=== PATIENT | female | born 1975 | race Caucasian/White ===

== ENCOUNTER 2017-01-25 00:40 | Emergency (ER) | payer SELFPAY ==
[~2017-01-25] VITALS: Ht 167.6 cm; Wt 110.0 kg
[2017-01-25 00:42] VITALS: BP 188/100; PULSE 126; RESP 18; TEMP 98.5; O2SAT 100
--- NOTE | 2017-01-25 00:56 | PD ---
HPI Chief Complaint: Psychiatric Symptoms Time Seen by Provider: 00:50 Travel History International Travel<30 days: No Contact w/Intl Traveler<30days: No Traveled to known affect area: No History of Present Illness HPI 41 year white female presents emergency Department under [place] act by PD. Patient had made suicidal statements that she was going to commit suicide by shooting herself in head with a gun. The patient was placed in the custody at her home. During her intake she allegedly had been bitten on her lower extremity is by ants. The patient then claimed that she would have a reaction to and bites. EMS was summoned and the patient was brought to the ER. The patient here smells of alcohol. She is uncooperative resisting evaluation today. The patient here denies making any suicidal statements. She denies any homicidal ideation. She denies toxic ingestions. She does admit to alcohol but denies any other drugs. She does not smoke. PFSH Past Medical History Narrative Medical Sees on allergies, arthritis Tetanus Vaccination: < 5 Years ?: Not Past Surgical History Narrative Surgical Carpal tunnel release, tonsillectomy, , tubal ligation, bilateral salpingo-oophorectomy, Social History Alcohol Use: Yes Tobacco Use: No Substance Use: No Allergies-Medications (Allergen,Severity, Reaction): Coded Allergies: Benadryl (Verified Allergy, Severe, 01/25/17) Penicillin (Verified Allergy, Severe, 01/25/17) Reported Meds & Prescriptions Reported Meds & Active Scripts Active No Active Prescriptions or Reported Medications Review of Systems ROS Limitations: Intoxication, Unresponsive Psychiatric: Positive: Depression (a lot of the above the), Mood Disorder, No : Anxiety, Suicidal Ideations, Disorder of Thought, Substance Abuse, Homicidal Ideation Physical Exam Narrative GENERAL: Well-nourished, well-developed patient. Patient is uncooperative. She is intoxicated and smells of EtOH. SKIN: Warm and dry. HEAD: Normocephalic and atraumatic. EYES: No scleral icterus. No injection or drainage. ENT: No nasal drainage noted. Mucous membranes pink. Airway patent. NECK: Supple, trachea midline. Moves head freely without obvious discomfort. CARDIOVASCULAR: Regular rate and rhythm without murmurs, gallops, or rubs. RESPIRATORY: Breath sounds equal bilaterally. No accessory muscle use. GASTROINTESTINAL: Abdomen soft, non-tender, nondistended. EXTREMITIES: No cyanosis or edema. BACK: Nontender without obvious deformity. No CVA tenderness. NEURO: Patient is alert and oriented. no sensorimotor deficits. Nonfocal. Normal speech. PSYCH: No delusions. No auditory or visual hallucinations. Data Data Last Documented VS Vital Signs Date Time Temp Pulse Resp B/P Pulse Ox O2 Delivery O2 Flow Rate FiO2 01/25/17 02:56 90 18 152/85 99 Room Air 01/25/17 00:42 98.5 Orders Complete Blood Count With Diff (01/25/17 00:45) Comprehensive Metabolic Panel (01/25/17 00:45) Psych Screen (01/25/17 00:45) Drug Screen, Random Urine (01/25/17 00:45) Alcohol (Ethanol) (01/25/17 00:45) Salicylates (Aspirin) (01/25/17 00:45) Tylenol (Acetaminophen) (01/25/17 00:45) Labs Laboratory Tests Test 01/25/17 01/25/17 00:45 01:20 White Blood Count 10.8 TH/MM3 Red Blood Count 5.27 MIL/MM3 Hemoglobin 15.5 GM/DL Hematocrit 46.8 % Mean Corpuscular Volume 88.9 FL Mean Corpuscular Hemoglobin 29.4 PG Mean Corpuscular Hemoglobin 33.1 % Concent Red Cell Distribution Width 14.4 % Platelet Count 271 TH/MM3 Mean Platelet Volume 10.3 FL Neutrophils (%) (Auto) 60.1 % Lymphocytes (%) (Auto) 33.0 % Monocytes (%) (Auto) 5.5 % Eosinophils (%) (Auto) 0.2 % Basophils (%) (Auto) 1.2 % Neutrophils # (Auto) 6.5 TH/MM3 Lymphocytes # (Auto) 3.6 TH/MM3 Monocytes # (Auto) 0.6 TH/MM3 Eosinophils # (Auto) 0.0 TH/MM3 Basophils # (Auto) 0.1 TH/MM3 CBC Comment DIFF FINAL Differential Comment Sodium Level 141 MEQ/L Potassium Level 4.0 MEQ/L Chloride Level 102 MEQ/L Carbon Dioxide Level 21.2 MEQ/L Anion Gap 18 MEQ/L Blood Urea Nitrogen 11 MG/DL Creatinine 0.82 MG/DL Estimat Glomerular Filtration 76 ML/MIN Rate Random Glucose 114 MG/DL Calcium Level 9.0 MG/DL Total Bilirubin 0.4 MG/DL Aspartate Amino Transf 25 U/L (AST/SGOT) Alanine Aminotransferase 25 U/L (ALT/SGPT) Alkaline Phosphatase 75 U/L Total Protein 7.8 GM/DL Albumin 3.9 GM/DL Salicylates Level LESS THAN 1.7 MG/DL Acetaminophen Level LESS THAN 2.0 MCG/ML Ethyl Alcohol Level 289 MG/DL Urine Opiates Screen NEG Urine Barbiturates Screen NEG Urine Amphetamines Screen NEG Urine Benzodiazepines Screen NEG Urine Cocaine Screen NEG Urine Cannabinoids Screen NEG MDM Medical Decision Making Medical Screen Exam Complete: Yes Emergency Medical Condition: Yes Medical Record Reviewed: Yes Interpretation(s) Laboratory Tests Test 01/25/17 01/25/17 00:45 01:20 White Blood Count 10.8 TH/MM3 Red Blood Count 5.27 MIL/MM3 Hemoglobin 15.5 GM/DL Hematocrit 46.8 % Mean Corpuscular Volume 88.9 FL Mean Corpuscular Hemoglobin 29.4 PG Mean Corpuscular Hemoglobin 33.1 % Concent Red Cell Distribution Width 14.4 % Platelet Count 271 TH/MM3 Mean Platelet Volume 10.3 FL Neutrophils (%) (Auto) 60.1 % Lymphocytes (%) (Auto) 33.0 % Monocytes (%) (Auto) 5.5 % Eosinophils (%) (Auto) 0.2 % Basophils (%) (Auto) 1.2 % Neutrophils # (Auto) 6.5 TH/MM3 Lymphocytes # (Auto) 3.6 TH/MM3 Monocytes # (Auto) 0.6 TH/MM3 Eosinophils # (Auto) 0.0 TH/MM3 Basophils # (Auto) 0.1 TH/MM3 CBC Comment DIFF FINAL Differential Comment Sodium Level 141 MEQ/L Potassium Level 4.0 MEQ/L Chloride Level 102 MEQ/L Carbon Dioxide Level 21.2 MEQ/L Anion Gap 18 MEQ/L Blood Urea Nitrogen 11 MG/DL Creatinine 0.82 MG/DL Estimat Glomerular Filtration 76 ML/MIN Rate Random Glucose 114 MG/DL Calcium Level 9.0 MG/DL Total Bilirubin 0.4 MG/DL Aspartate Amino Transf 25 U/L (AST/SGOT) Alanine Aminotransferase 25 U/L (ALT/SGPT) Alkaline Phosphatase 75 U/L Total Protein 7.8 GM/DL Albumin 3.9 GM/DL Salicylates Level LESS THAN 1.7 MG/DL Acetaminophen Level LESS THAN 2.0 MCG/ML Ethyl Alcohol Level 289 MG/DL Urine Opiates Screen NEG Urine Barbiturates Screen NEG Urine Amphetamines Screen NEG Urine Benzodiazepines Screen NEG Urine Cocaine Screen NEG Urine Cannabinoids Screen NEG Differential Diagnosis MDM: High Differential diagnoses: Schizophrenia, schizoaffective disorder, bipolar, anxiety, depression, adjustment reaction, mood disorder NOS, ODD, depressive disorder NOS, dementia, dementia with agitation, psychosis NOS, substance induced mood disorder, intermittent explosive disorder, Asperger syndrome, infection,electrolyte abnormality, malingering. Narrative Course Mental health screening discussed with the patient. Psychiatric screen ordered. The patient's been medically cleared. This is medical clearance for psychological evaluation, alcohol intoxication Diagnosis Primary Impression: Medical clearance for psychiatric admission Additional Impression: Alcohol intoxication Qualified Code: F10.920 - Alcohol intoxication, uncomplicated Scripts No Active Prescriptions or Reported Meds Condition: Quirino Peng January 25, 2017 00:56
[2017-01-25 01:04] LABS: AUTOMATED NEUTROPHIL # 6.5 TH/MM3 (1.8-7.7); BASOPHIL # 0.1 TH/MM3 (0-0.2); BASOPHIL % 1.2 % (0.0-2.0); EOSINOPHIL % 0.2 % (0.0-4.0); HEMATOCRIT 46.8 % (35.0-46.0); HEMO FLAGS DIFF FINAL; LYMPHOCYTE # 3.6 TH/MM3 (1.0-4.8); MEAN CELL VOLUME 88.9 FL (80.0-100.0); MEAN CORPUSCULAR HEMOGLOBIN 29.4 PG (27.0-34.0); MEAN CORPUSCULAR HGB CONC 33.1 % (32.0-36.0); MONO % 5.5 % (0.0-8.0); NEUT % 60.1 % (16.0-70.0); PLATELET COUNT 271 TH/MM3 (150-450); RED BLOOD COUNT 5.27 MIL/MM3 (4.00-5.30); RED CELL DISTRIBUTION WIDTH 14.4 % (11.6-17.2); WHITE BLOOD COUNT 10.8 TH/MM3 (4.0-11.0)
[2017-01-25 01:16] LABS: ALT (GPT) 25 U/L (10-53); ANION GAP 18 MEQ/L (5-15); AST (GOT) 25 U/L (15-37); BICARBONATE 21.2 MEQ/L (21.0-32.0); BLOOD UREA NITROGEN 11 MG/DL (7-18); CHLORIDE 102 MEQ/L (98-107); GLOMERULAR FILTRATION RATE 76 ML/MIN (>89); SODIUM (NA) 141 MEQ/L (136-145)
[2017-01-25 01:18] LABS: ACETAMINOPHEN LESS THAN 2.0 MCG/ML (10.0-30.0); ALKALINE PHOSPHATASE 75 U/L (45-117); TOTAL BILIRUBIN ADULT 0.4 MG/DL (0.2-1.0)
[2017-01-25 01:36] LABS: AMPHETAMINE, URINE NEG (NEG); BARBITURATES, URINE NEG (NEG); COCAINE, URINE NEG (NEG)
[2017-01-25 02:56] VITALS: BP 152/85; PULSE 90; RESP 18; O2SAT 99
[2017-01-25 06:16] VITALS: BP 153/90; PULSE 108; RESP 18; O2SAT 99
[2017-01-25] MEDS ORDERED: ONDANSETRON HCL 4 MG/2 ML VIAL IV PUSH ONE (06:30)
[2017-01-25 07:25] VITALS: BP 167/84; PULSE 99; RESP 18; TEMP 99; O2SAT 98
[2017-01-25] MEDS ORDERED: PROCHLORPERAZINE INJ 10 MG/2 ML VIAL IV PUSH ONE (09:00)
--- NOTE | 2017-01-25 11:31 | PD ---
History of Present Illness Chief Complaint: Psychiatric Symptoms Time Seen by Provider: 11:20 Travel History International Travel<30 Days: No Contact w/Intl Traveler<30days: No Known affected area: No Legal Status Legal Status: [place] Act [place] Signed By: Farhat Martel [place] Act Comment: 2016 @ [id number] History of Present Illness: Traveled to known affect area: No History of Present Illness HPI 41 year white female presents emergency Department under [place] act by PD. Patient had made suicidal statements that she was going to commit suicide by shooting herself in head with a gun. The patient was placed in the custody at her home. During her intake she allegedly had been bitten on her lower extremity is by ants. The patient then claimed that she would have a reaction to and bites. EMS was summoned and the patient was brought to the ER. The patient here smells of alcohol. She is uncooperative resisting evaluation today. The patient here denies making any suicidal statements. She denies any homicidal ideation. She denies toxic ingestions. She does admit to alcohol but denies any other drugs. She does not smoke. PFSH Past Medical History Tetanus Vaccination: < 5 Years Influenza Vaccination: No ?: Not Tubal Ligation: Yes Past Surgical History Section: Yes Psychiatric History Psychiatric History Hx Psychiatric Treatment: DENIES History of Inpatient Treatment: No Social History Hx Alcohol Use: Yes Hx Tobacco Use: No Hx Substance Use: Yes (AT LEAST ONE BOTTLE WINE DAILY X 6 MO) Substance Use Type: Alcohol Hx of Substance Use Treatment: No Allergies-Medications (Allergen,Severity, Reaction): Coded Allergies: Benadryl (Verified Allergy, Severe, 01/25/17) Penicillin (Verified Allergy, Severe, 01/25/17) Reported Meds & Prescriptions Reported Meds & Active Scripts Active No Active Prescriptions or Reported Medications Exam Alert: Yes Delusions: No MDM Medical Decision Making Medical Record Reviewed: Yes Assessment/Plan Lift BA. Cleared from psychiatry for discharge Orders Complete Blood Count With Diff (01/25/17 00:45) Comprehensive Metabolic Panel (01/25/17 00:45) Psych Screen (01/25/17 00:45) Drug Screen, Random Urine (01/25/17 00:45) Alcohol (Ethanol) (01/25/17 00:45) Salicylates (Aspirin) (01/25/17 00:45) Tylenol (Acetaminophen) (01/25/17 00:45) Ondansetron Inj (Zofran Inj) (01/25/17 06:30) Diet Regular Basic (01/25/17 Breakfast) Prochlorperazine Inj (Compazine Inj) (01/25/17 09:00) Results Vital Signs Date Time Temp Pulse Resp B/P Pulse Ox O2 Delivery O2 Flow Rate FiO2 01/25/17 07:25 99.0 99 18 167/84 98 01/25/17 06:16 108 18 153/90 99 Room Air 01/25/17 02:56 90 18 152/85 99 Room Air 01/25/17 00:44 126 01/25/17 00:42 98.5 126 18 188/100 100 Laboratory Tests Test 01/25/17 01/25/17 00:45 01:20 White Blood Count 10.8 Red Blood Count 5.27 Hemoglobin 15.5 Hematocrit 46.8 Mean Corpuscular Volume 88.9 Mean Corpuscular Hemoglobin 29.4 Mean Corpuscular Hemoglobin 33.1 Concent Red Cell Distribution Width 14.4 Platelet Count 271 Mean Platelet Volume 10.3 Neutrophils (%) (Auto) 60.1 Lymphocytes (%) (Auto) 33.0 Monocytes (%) (Auto) 5.5 Eosinophils (%) (Auto) 0.2 Basophils (%) (Auto) 1.2 Neutrophils # (Auto) 6.5 Lymphocytes # (Auto) 3.6 Monocytes # (Auto) 0.6 Eosinophils # (Auto) 0.0 Basophils # (Auto) 0.1 CBC Comment DIFF FINAL Differential Comment Sodium Level 141 Potassium Level 4.0 Chloride Level 102 Carbon Dioxide Level 21.2 Anion Gap 18 Blood Urea Nitrogen 11 Creatinine 0.82 Estimat Glomerular Filtration 76 Rate Random Glucose 114 Calcium Level 9.0 Total Bilirubin 0.4 Aspartate Amino Transf 25 (AST/SGOT) Alanine Aminotransferase 25 (ALT/SGPT) Alkaline Phosphatase 75 Total Protein 7.8 Albumin 3.9 Salicylates Level LESS THAN 1.7 Acetaminophen Level LESS THAN 2.0 Ethyl Alcohol Level 289 Urine Opiates Screen NEG Urine Barbiturates Screen NEG Urine Amphetamines Screen NEG Urine Benzodiazepines Screen NEG Urine Cocaine Screen NEG Urine Cannabinoids Screen NEG Diagnosis Primary Impression: Medical clearance for psychiatric admission Additional Impression: Alcohol intoxication Psychiatrically Cleared: Yes Departure Forms: Tests/Procedures Patient Instructions: General Instructions Prescriptions No Active Prescriptions or Reported Meds Disposition: 01 DISCHARGE HOME Condition: Stable Problem Qualifiers Additional Impression: Alcohol intoxication Qualified Code: F10.920 - Alcohol intoxication, uncomplicated Sue Rodríguez [facility] January 25, 2017 11:31
== END 2017-01-25 13:05 | disposition home or self-care (01) ==
LOC: NEPD 00:40
DX: F10.920 Alcohol use, unspecified with intoxication, uncomplicated (principal)
CPT/HCPCS: 80053; 80307; 85025; 96374; 99284; J0780